=== PATIENT | female | born 1950 | race Caucasian/White ===

== ENCOUNTER 2024-05-04 10:00 | Inpatient (IN) | payer OTHER ==
[~2024-05-04] VITALS: Ht 30.5 cm; Wt 89.8 kg
[~2024-05-04 10:00] MED LIST: ALENDRONATE SOD35 MG PO; AMILODIPINE PO; ATORVASTATIN CA40 MG PO; CALCIO PO; CIPROFLOXACIN750 MG PO; CLONAZEPAM1 MG PO; DOCUSATE SODIU100 MG PO; ECOTRIN81 MG PO; GABAPENTIN600 MG PO; GABAPENTIN800 MG PO; PERCOCET 5/3251 TAB PO; SYNTHROID88 MCG PO; TENORMIN50 M1 PO; [UNRECOGNIZED DRUG - OTHER]; [UNRECOGNIZED DRUG - OTHER] PO; [UNRECOGNIZED DRUG - OTHER] PO; [UNRECOGNIZED DRUG - OTHER] PO
[2024-05-06] MEDS ORDERED: NADOLOL20 MG (11:11)
[2024-05-06] MEDS ORDERED: DOLOGESIC 500-1 EACH PO (11:12)
[2024-05-06] MEDS ORDERED: CRESTOR40 MG (11:12)
[2024-05-06] MEDS ORDERED: ZETIA10 MG PO (11:12)
[2024-05-11] MEDS ORDERED: ZOFRAN8 MG PO (15:15)
[2024-05-11] MEDS ORDERED: MEDROLPACK PO (15:15)
[2024-05-11] MEDS ORDERED: PERCOCET 5-3251 EACH PO (15:15)
[2024-05-11] MEDS ORDERED: AMOX-CLAV 875-1 EACH PO (15:15)
[2024-05-11] MEDS ORDERED: COLACE100 MG PO (15:15)
[2024-05-11] MEDS ORDERED: GABAPENTIN100 M2 PO (15:16)
[2024-05-11] MEDS ORDERED: NEURONTIN800 MG PO (15:16)
[2024-05-11] MEDS ORDERED: CEFAZOLIN SODIUM 1,000 MG VIAL ONE (15:38)
[2024-05-11] MEDS ORDERED: 0.9 % SODIUM CHLORIDE 1,000 ML IV SCH (15:45)
[2024-05-11] MEDS ORDERED: ENALAPRILAT DIHYDRATE 1.25 MG/ML VIAL IV PRN (15:45)
[2024-05-11] MEDS ORDERED: PROMETHAZINE HCL 50 MG/ML AMPUL IM PRN (15:45)
[2024-05-11] MEDS ORDERED: FAMOtidine 20 MG TABLET PO SCH (17:00)
[2024-05-11] MEDS ORDERED: CEFAZOLIN SODIUM 1,000 MG in 0.9 % SODIUM CHLORIDE 50 ML IV SCH (17:00)
[2024-05-11] MEDS ORDERED: DOCUSATE SODIUM 100MG CAP PO SCH (17:00)
[2024-05-11] MEDS ORDERED: METHYLPREDNISOLONE SOD SUCC 125 MG VIAL IV SCH (17:00)
[2024-05-11] MEDS ORDERED: MORPHINE SULFATE 4 MG/ML CARTRIDGE IV SCH (17:00)
[2024-05-11] MEDS ORDERED: METHYLPREDNISOLONE SOD SUCC 125 MG VIAL ONE (17:32)
[2024-05-11] MEDS ORDERED: METHYLPREDNISOLONE ACETATE 80 MG/ML VIAL ONE (17:32)
[2024-05-11] MEDS ORDERED: VANCOMYCIN HCL 1,000 MG VIAL ONE ×2 (17:32→21:13)
[2024-05-11] MEDS ORDERED: HEMOSTATIC MATRIX WITH THROMBIN KIT TOP ONE (17:33)
[2024-05-11] MEDS ORDERED: IOVERSOL 320 MG/ML - 50 ML VIAL IV ONE (18:22)
[2024-05-11] MEDS ORDERED: ACETAMINOPHEN 500 MG GEL..CAP PO SCH (20:00)
[2024-05-11] MEDS ORDERED: MORPHINE SULFATE 4 MG/ML VIAL IV ONE ×3 (21:00→21:45)
[2024-05-11] MEDS ORDERED: VANCOMYCIN HCL 1,000 MG VIAL IV SCH (21:00)
[2024-05-11] MEDS ORDERED: GABAPENTIN 800 MG TABLET PO SCH (21:00)
[2024-05-12] VITALS (8 sets, daily range): BP systolic 128–137; BP diastolic 77–81; O2SAT 90–98
[2024-05-12] MEDS ORDERED: SODIUM CHLORIDE 0.45 % 1,000 ML IV SCH
[2024-05-12] MEDS ORDERED: LEVOTHYROXINE SODIUM 75 MCG TABLET PO SCH (06:00)
[2024-05-12] MEDS ORDERED: OxyCODONE HCL 5 MG TABLET (ROXICODONE) PO PRN (06:01)
[2024-05-12] MEDS ORDERED: VANCOMYCIN HCL 1,000 MG VIAL ONE ×2 (07:49→15:25)
[2024-05-12 08:48] LABS: HEMATOCRIT 40.3 % (36.0-45.00); HEMOGLOBIN 13.9 g/dL (12.0-15.00); MEAN CELL VOLUME 87.5 fL (80.00-100.00); MEAN CORPUSCULAR HEMOGLOBIN 30.2 pg (27.00-32.0); MEAN CORPUSCULAR HGB CONC 34.5 g/dl (32.0-36.0); PLATELET COUNT 226 K/uL (150-450); RED BLOOD COUNT 4.61 M/uL (4.00-6.00); RED CELL DISTRIBUTION WIDTH 13.8 % (11.5-14.5)
[2024-05-12] MEDS ORDERED: TAMSULOSIN HCL 0.4 MG CAP PO SCH (09:00)
[2024-05-12] MEDS ORDERED: AMLODIPINE BESYLATE 5 MG TABLET PO SCH (09:00)
[2024-05-12] MEDS ORDERED: CANDESARTAN CILEXETIL 32 MG TABLET PO SCH (09:00)
[2024-05-12 09:33] LABS: CALCIUM 9.2 mg/dL (8.5-10.1); CREATININE SERUM 0.85 mg/dL (0.55-1.02); GFR 65.2; POTASSIUM 5.01 mEq/L (3.5-5.1)
[2024-05-12 15:10] LABS: HEMATOCRIT 38.4 % (36.0-45.00); HEMOGLOBIN 13.1 g/dL (12.0-15.00); MEAN CORPUSCULAR HEMOGLOBIN 29.9 pg (27.00-32.0); PLATELET COUNT 232 K/uL (150-450); RED BLOOD COUNT 4.37 M/uL (4.00-6.00); RED CELL DISTRIBUTION WIDTH 13.7 % (11.5-14.5)
[2024-05-12 15:53] LABS: ALBUMIN 3.2 gm/dL (3.4-5.0); BILIRUBIN TOTAL 0.55 mg/dL (0.3-1.2); CALCIUM 8.9 mg/dL (8.5-10.1); CREATININE SERUM 1.06 mg/dL (0.55-1.02); GFR 50.54; GLOBULINA 3.3 G/DL (2.4-3.5); POTASSIUM 4.17 mEq/L (3.5-5.1); TOTAL PROTEIN 6.5 gm/dL (6.4-8.2)
[2024-05-13 00:48] VITALS: BP 119/66; O2SAT 96
[2024-05-13 01:49] VITALS: O2SAT 99
[2024-05-13 05:40] VITALS: O2SAT 95
[2024-05-13 08:00] VITALS: BP 140/82; O2SAT 97
[2024-05-13 12:19] VITALS: O2SAT 99
[2024-05-13 16:00] VITALS: BP 122/85; O2SAT 95
== END 2024-05-13 21:13 | disposition home or self-care (01) | DRG 402 ==
LOC: SURH 05-11 08:45 → O/R 05-11 08:55 → SURH 05-11 16:00
PROVIDERS: ADMIT Orthopaedic Surgery Orthopaedic Surgery of the Spine; ATTEND Orthopaedic Surgery Orthopaedic Surgery of the Spine
PROC: 0SG30K1 Fusion of Lumbosacral Joint with Nonautologous Tissue Substitute, Posterior Approach, Posterior Column, Open Approach (ICD-10-PCS; 2024-05-11)
PROC: 0ST40ZZ Resection of Lumbosacral Disc, Open Approach (ICD-10-PCS; 2024-05-11)
PROC: 0QB30ZX Excision of Left Pelvic Bone, Open Approach, Diagnostic (ICD-10-PCS; 2024-05-11)
PROC: 07DR0ZZ Extraction of Iliac Bone Marrow, Open Approach (ICD-10-PCS; 2024-05-11)
PROC: 4A1104G Monitoring of Peripheral Nervous Electrical Activity, Intraoperative, Open Approach (ICD-10-PCS; 2024-05-11)
PROC: 4A12X4Z Monitoring of Cardiac Electrical Activity, External Approach (ICD-10-PCS; 2024-05-11)
PROC: XRGD0R7 Fusion of Lumbosacral Joint using Custom-Made Anatomically Designed Interbody Fusion Device, Open Approach, New Technology Group 7 (ICD-10-PCS; principal; 2024-05-11 16:00)
DX: M43.17 Spondylolisthesis, lumbosacral region (principal); M51.370 Other intervertebral disc degeneration, lumbosacral region with discogenic back pain only; M54.17 Radiculopathy, lumbosacral region; M48.07 Spinal stenosis, lumbosacral region; I10 Essential (primary) hypertension; E03.9 Hypothyroidism, unspecified